=== PATIENT | male | born 1985 | race Hispanic/Latino ===

== ENCOUNTER 2023-06-01 00:15 | Emergency (ER) | payer SELFPAY ==
[2023-06-01 00:19] VITALS: BP 148/86
--- NOTE | 2023-06-01 00:31 | ED.GENMED ---
History of Present Illness
General
Chief Complaint: Alcohol Problem
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
Exam Limitations: other (Language barrier)
Time Seen by Provider: 06/01/23 00:18
Travel History
Have you had any contact with someone who has COVID-19?: No
Do you have any symptoms of coronavirus? Fever > 100 degrees, chills, cough, shortness of breath, sore throat, loss of taste or smell, muscle aches, or headache?: No
History of Present Illness
History of Present Illness:
This is a 38 year old male that comes in with c/o abd pain. States that he was drinking a lot today. States that after this he started to feel sick and he vomited 5 times. States that there was dark blood in his vomit. States that he doesn't know
how many beers that he drank. States that he has a cough and acid reflux. States that he also had chills, headache and some dizziness. Denies any fevr, chest pain, SOB, diarrhea, urinary burning.
Past History
Past History
ED Past Medical History: None; Negative Asthma, HTN, Hypercholesterolemia or NIDDM
ED Past Surgical History: None
Social History
Tobacco: Non-smoker
Alcohol: Occasional
Personal: Single
Living: alone
Review of Systems
Review of Systems
All Other Systems: ROS reviewed and negative except as documented in HPI and ROS
Constitutional: Reports chills; Denies fever
EENT: Reports no symptoms
Respiratory: Reports cough; Denies trouble breathing
Cardiac: Denies chest pain
ABD/GI: Reports abdominal pain, nausea and vomiting; Denies diarrhea
: Reports no symptoms; Denies dysuria, frequency or urgency
Musculoskeletal: Reports no symptoms
Skin: Reports no symptoms
Neurological: Reports dizzy and headache
Psychiatric: Reports no symptoms
Phy Exam
General Physical Exam
General Presentation: mild distress
General age: appears stated age
General Skin: warm and dry
General Habitus: normal
General Mental: alert
General Hydration: appears well hydrated
ENT Exam
ENT Exam: TM's normal, pharynx normal and neck supple
Eye Exam
Eye Exam: EOMI
Cardiovascular Exam
Cardiovascular Exam: regular rate/rhythm, no edema, no murmur and normal peripheral pulses
Pulmonary Exam
Pulmonary Exam: lungs clear, no respiratory distress, no rales, chest non tender, no crackles, no rhonchi, no wheezing and no cough
Gastrointestinal Exam
Gastrointestinal Exam: normal bowel sounds, soft, no organomegaly, no pulsatile mass, non distended and tender (Epigastric tenderness with palpation)
Musculoskeletal Exam
Musculoskeletal Exam: full ROM and no edema
Skin Exam
Skin Exam: normal color, warm/dry, no rash and no petechia
Psychiatric Exam
Psychiatric Exam: normal mood/affect
Scores
Withdrawal Assessment of Alcohol
Withdrawal Assessment Completed?: Not applicable
Course
Orders/Labs/Results
Orders:
Orders
06/01/23 00:31
0.9% Sodium Chloride 1000 ml [Nss] 1,000 ml IV BOLUS
Pantoprazole [Protonix IV] 80 mg IV NOW STA
06/01/23 00:38
Alcohol Urgent
Complete Blood Count/With Diff Urgent
Comprehensive Metabolic Panel Urgent
Lipase Urgent
06/01/23 00:42
Ondansetron Injectable [Zofran] 4 mg IV NOW STA
06/01/23 01:24
Ketorolac [Toradol] 30 mg IV NOW STA
Sucralfate Suspension [Carafate Suspension] 1 gm PO NOW STA
06/01/23 01:26
Diphenhydramine [Benadryl] 25 mg IV NOW STA
Prochlorperazine [Compazine] 5 mg IV NOW STA
Abnormal Lab Results
06/01/23
00:38
MCH 32.6 H pg
(27.0-31.0)
MCHC 37.4 H g/dL
(33.0-37.0)
Abs Immat Gran (auto) 0.1 H 10^3/uL
(0-0.05)
Absolute Monos (auto) 0.7 H 10^3/uL
(0.1-0.6)
Immature Gran % 0.8 H %
(0-0.5)
Sodium 131 L mmol/L
(135-145)
Chloride 90 L mmol/L
(98-107)
Creatinine 0.5 L mg/dL
(0.7-1.3)
Glucose 160 H mg/dl
(70-99)
Total Protein 8.8 H g/dl
(6.3-8.2)
06/01/23 00:38
06/01/23 00:38
Sodium slightly low. Chloride low. Glucose nonfasting. Total protein slightly elevated. Lipase normal at 67. Alcohol level 211
Vital Signs
Initial and Last Documented VS:
Initial Vital Signs
Pulse Resp BP Pulse Ox
104 24 148/86 97
06/01/23 00:19 06/01/23 00:19 06/01/23 00:19 06/01/23 00:19
Last Documented Vital Signs
Pulse Resp BP Pulse Ox
104 24 148/86 95
06/01/23 00:19 06/01/23 00:19 06/01/23 00:19 06/01/23 00:50
MDM/Problems Addressed
Differential Diagnosis Includes:
Gastritis, Pancreatitis,
MDM/Problems Addressed:
This is a 38 year old male that comes in with c/o abd pain and drinking to much alcohol. States that he was drinking today and then after this he was vomiting blood.
Will check labs, give Protonix
Back into see patient. Patient states that he continues with abd pain.
Into see patient. Patient is feeling better. Will give a dose of Carafate and patient will be given a prescription for Protonix for the next 10 days. Encouraged patient to stop drinking. Patient to increase his water intake to 8-8oz glasses daily.
Follow with the family doctor. Return with any concerns.
Chronic conditions affecting care:
NA
Acute Exacerbation and/or Progression of Chronic Illness:
NA
*Pulse Oximetry
Patient hypoxic: no
*EKG
Interpreted by ED Provider?: NA
Rate: EKG- N/A
*Customer Support Consultant Interpretation
Rate: Customer Support Consultant- N/A
*Critical Care Note
Total Time (30-74mins, 75-104mins- exclusive of procedures): Not Applicable
ED Attending Note
-
Portions of this chart may have been created with voice recognition software.� Occasional wrong word or��sound alike� substitutions may have occurred due to the inherent limitations of voice recognition software.
Discharge Plan
Departure
Patient Disposition: Home (Routine Discharge)
Date of Disposition: 06/01/23
Time of Disposition: 02:38
Patient with high blood pressure during this ER visit?: Yes
Condition: Good
Covid-19: Not Applicable
Discharge Problem:
Gastritis, Alcohol abuse
Instructions: Gastritis (DC), Alcohol Use Disorder (DC), BLOOD PRESSURE
Prescriptions:
New
pantoprazole [Protonix] 40 mg tablet,delayed release (DR/EC)
40 mg PO DAILY Qty: 10 0RF
Referrals:
NONE,* [Family Provider] -
Activity Restrictions/Additional Instructions:
As discussed, you need to stop drinking. This is most likely a gastritis from irritation of the alcohol. Please increase your water intake to 8-8oz glasses daily. You have been given a prescription for Protonix. Please take this daily for the next
10 days. Follow up with the family doctor for recheck. IF YOU HAVE ANY OATHER CONCERNS PLEASE RETURN TO THE EMERGENCY ROOM.
Interventions
Interventions:
IE-Wmpflp-Awglwfiavy Assessment Last Done: 06/01/23 00:50
ED- Cardiac Assessment Last Done: 06/01/23 00:50
ED- Neurological Assessment Last Done: 06/01/23 00:50
ED-Psychological Assessment Last Done: 06/01/23 00:50
ED- Pulmonary Assessment Last Done: 06/01/23 00:50
[2023-06-01] MEDS: NSS 1000 IV (00:40)
[2023-06-01] MEDS: PROTONIX IV 80 MG IV (00:40)
[2023-06-01] MEDS: ZOFRAN 4 MG IV (00:44)
[2023-06-01 01:00] VITALS: BP 152/88
[2023-06-01 01:01] LABS: ALT (SGPT) 40 U/L (0-50); AST (SGOT) 54 U/L (17-59); Albumin 4.9 g/dl (3.5-5.0); Alcohol 211 mg/dl; Alkaline Phosphatase 107 U/L (38-126); Blood Urea Nitrogen 9 mg/dl (9-20); Calcium 9.6 mg/dl (8.4-10.2); Carbon Dioxide 23 mmol/L (22-30); Chloride 90 mmol/L (98-107); Glucose 160 mg/dl (70-99); Lipase 67 U/L (23-300); Sodium 131 mmol/L (135-145); Total Bilirubin 0.9 mg/dl (0.2-1.3); Total Protein 8.8 g/dl (6.3-8.2); eGFR > 60.00
[2023-06-01 01:09] LABS: % Basophils 0.4 % (0-2); % Eosinophils 0.8 % (0-6); % Immature Granulocytes 0.8 % (0-0.5); % Lymphocytes 34.2 % (20.5-51.1); % Monocytes 9.1 % (1.7-9.3); % Neutrophils 54.7 % (42.2-75.2); Absolute Eosinophils 0.1 10^3/uL (0-0.7); Absolute Immature Granulocytes 0.1 10^3/uL (0-0.05); Absolute Lymphocytes 2.5 10^3/uL (1.2-3.4); Absolute Monocytes 0.7 10^3/uL (0.1-0.6); Hematocrit 42.8 % (39.0-52.0); Mean Corp Hgb Conc. 37.4 g/dL (33.0-37.0); Mean Corpuscular Hgb 32.6 pg (27.0-31.0); Mean Corpuscular Volume 87.2 fL (80.0-94.0); Mean Platelet Volume 8.9 fL (7.4-10.4); Nucleated Red Blood Cells % 0 % (-); Platelet Count 339 10^3/uL (130-400); Red Blood Cell Count 4.91 10^6/uL (4.70-6.10); Red Cell Dist. Width 12.1 % (11.5-14.5); White Blood Cell Count 7.4 10^3/uL (4.8-10.8)
[2023-06-01] MEDS: BENADRYL 25 MG IV (01:31)
[2023-06-01] MEDS: TORADOL 30 MG IV (01:31)
[2023-06-01] MEDS: COMPAZINE 5 MG IV (01:32)
[2023-06-01 02:00] VITALS: BP 116/89
[2023-06-01] MEDS: CARAFATE SUSPENSION 1 GM PO (02:35)
== END 2023-06-01 03:31 | disposition home or self-care (01) ==
LOC: EMR 00:15
PROVIDERS: Clinical Nurse Specialist Family Health; EMERGENCY PHYSICIAN Student in an Organized Health Care Education/Training Program
DX: K29.70 Gastritis, unspecified, without bleeding (principal); F10.10 Alcohol abuse, uncomplicated; K21.9 Gastro-esophageal reflux disease without esophagitis
CPT/HCPCS: 99283; 96374; 96375; 96361; 80053; 82077; 83690; 85025

== ENCOUNTER 2023-06-11 22:46 | Inpatient (IN) | payer OTHER, SELFPAY ==
[2023-06-11] VITALS (9 sets, daily range): BP systolic 119–156; BP diastolic 65–111; BMI 27.9
--- NOTE | 2023-06-11 19:22 | ED.GENMED ---
History of Present Illness
General
Chief Complaint: Alcohol Problem
Source: patient
Exam Limitations: none
Time Seen by Provider: 06/11/23 19:12
Travel History
Have you had any contact with someone who has COVID-19?: No
Do you have any symptoms of coronavirus? Fever > 100 degrees, chills, cough, shortness of breath, sore throat, loss of taste or smell, muscle aches, or headache?: No
History of Present Illness
History of Present Illness:
See MDM
Past History
Past History
ED Past Medical History: None; Negative Asthma, HTN, Hypercholesterolemia or NIDDM
ED Past Surgical History: None
Social History
Tobacco: Non-smoker
Alcohol: Occasional
Personal: Single
Living: alone
Phy Exam
Physical Exam
Physical Exam:
See MDM
Scores
Withdrawal Assessment of Alcohol
Withdrawal Assessment Completed?: Yes
Nausea and Vomiting: Constant nausea, frequent dry heaves and vomiting
Tactile Disturbances: Very mild itching, pins and needles, burning or numbness
Tremor: Moderate, with patient's arms extended
Auditory Disturbances: Not present
Paroxysmal Sweats: Beads of sweat obvious on forehead
Visual Disturbances: Very mild sensitivity
Anxiety: Moderately anxious, or guarded, so anxiety is inferred
Headache, Fullness in Head: Mild
Agitation: Moderately fidgety and restless
Orientation and clouding of sensorium: Oriented and can do serial additions
Total CIWA Score: 27
Alcohol Withdrawal Medication Recommendation: Equal to MSAS >11. Lorazepam 2-4mg IV NOW and re-assess q1hr
Course
Orders/Labs/Results
Orders:
Orders
06/11/23 Dinner
1800 calorie (15 carb) Diabetic
At Your Request: Limited, Scow Captain Required
Fluid Restriction: 1440 mL/day (48 oz)
Diabetic Diet: Cholesterol Lowering
06/11/23 19:19
0.9% Sodium Chloride 1000 ml [Nss] 1,000 ml IV BOLUS
Lorazepam [Ativan] 2 mg IV NOW STA
Ondansetron Injectable [Zofran] 4 mg IV NOW STA
Pantoprazole [Protonix IV] 40 mg IV NOW STA
06/11/23 19:27
Alcohol Urgent
B-Hydroxybutyrate Urgent
Comment: ADDED
Complete Blood Count/With Diff Urgent
Comprehensive Metabolic Panel Urgent
GGTP Urgent
Comment: ADDED
Lipase Urgent
Magnesium Urgent
PTT Urgent
Phosphorus Urgent
Comment: ADDED
Prothrombin Time Urgent
06/11/23 19:52
Lorazepam [Ativan] 2 mg IV NOW STA
06/11/23 19:53
CT Abd/pelvis W Iv Cont Urgent
Comment:
Reason For Exam: Upper mid abd pain, vomiting, alcohol abuse
06/11/23 21:31
Lorazepam [Ativan] 1 mg IV NOW STA
06/11/23 22:16
Admit/Transfer Patient As Directed
Co-Sign Provider:
Level of Care: Inpatient admission
Assign to:: IMU- Intermediate Care
Physician / Group: morgan lei
Diagnosis: alcohol withdrawal, beer potomania, hyperglycemia
Reason for Hospitalization: alcohol withdrawal, beer potomania, hyperglycemia
Expected length of stay greater than two midnights?: Yes
ELOS- Estimated Length of Stay in days: 5
I certify the patient meets the requirements for IP care: Yes
06/11/23 22:18
Code Status As Directed
Resuscitation Status: Full Code
06/11/23 23:44
0.9% Sodium Chloride [Nss (Preservative Free)] See Protocol IV PRN PRN
Dextrose 50%-Water [Dextrose 50% Syringe] 12.5 grams IV [id number] PRN
FOLic ACID [Folvite] 1 mg 0.9% Sodium Chloride 50 ml [Nss] 50 ml IV DAILYPRN
Glucagon [GlucaGen] 1 mg IM PRN PRN
Lorazepam [Ativan] 1 mg IV Q1HPRN PRN
Lorazepam [Ativan] 1 mg PO Q2HPRN PRN
Lorazepam [Ativan] 2 mg IV Q1HPRN PRN
Ondansetron Injectable [Zofran] 4 mg IV Q6HPRN PRN
06/11/23 23:44
Case Management Consult Once
Case Management Consult: Other
Comment: Substance abuse counseling
DIETARY CONSULT Routine
Reason for Consult: Nutrition support, possible refeeding guidelines
Urinalysis Routine
Date Specimen was Collected: 06/12/23
Time Specimen was Collected: 09:13
Urine Drug Abuse Screen Routine
Date Specimen was Collected: 06/12/23
Time Specimen was Collected: 09:14
Activity As Directed
Activity Level: As Tolerated
Bedside Glucose Monitoring As Directed
Frequency: AC&HS
Comment: Change to q6h if pt on TPN, tube feeding or not eating
Intake/ Output As Directed
Frequency: Per unit guidelines
MSAS SCORE As Directed
MSAS Score 0-4: Repeat MSAS every 2 hours until 0-4 for three consecutive assessments, then every 4 hours x 48
hours.
MSAS Score 5-7: For MILD withdrawl symptoms. Repeat MSAS and RASS every 2 hours
MSAS Score 8-11: For MODERATE withdrawal symptoms. Repeat MSAS and RASS every 1 hour. Consider ICU or IMU
level of care.
MSAS Score > 11: For SEVERE withdrawal symptoms. Repeat MSAS and RASS every 1 hour. Notify provider, consider
ICU level of care.
MSAS Additional Instructions: If no improvement or no decrease in score from severe to moderate within 12
hours, consult psychiatry
MSAS Notify Provider: Notify provider if patient requires more than 10 mg of Lorazepam in eight hour period.
Vital Signs As Directed
Frequency: Per unit guidelines
Weight As Directed
Frequency: Daily
Ot Eval And Treat Routine
Pt Eval And Treat Routine
Activity Level: As Tolerated
DX Deep Vein Thrombosis Video Routine
06/12/23 00:00
Thiamine Injection 200 mg IV Q8
06/12/23 04:35
Cardiovascular Evaluation IN AM
Complete Blood Count/With Diff IN AM
Comprehensive Metabolic Panel IN AM
Glycohemoglobin (HgbA1c) IN AM
06/12/23 07:30
Insulin Aspart Corrective Low [Novolog Flexpen-Low Resistance] See Protocol SC AC
06/12/23 08:00
FOLic ACID [Folvite] 1 mg PO DAILY
Phenobarbital Sodium [Phenobarbital] 97.5 mg IV TID
06/12/23 18:00
Enoxaparin Sodium [Lovenox] 40 mg SC QPM
06/13/23 03:56
Complete Blood Count/With Diff IN AM
Comprehensive Metabolic Panel IN AM
06/14/23 06:44
Complete Blood Count/With Diff IN AM
Comprehensive Metabolic Panel IN AM
06/14/23 08:00
Phenobarbital [Luminal] 64.8 mg PO TID
06/15/23 06:00
Complete Blood Count/With Diff IN AM
Comprehensive Metabolic Panel IN AM
06/15/23 08:00
Thiamine HCl [Vitamin B1] 100 mg PO BID
06/16/23 08:00
Phenobarbital [Luminal] 32.4 mg PO TID
Abnormal Lab Results
06/11/23
19:27
RBC 4.55 L 10^6/uL
(4.70-6.10)
Hct 38.6 L %
(39.0-52.0)
MCH 31.6 H pg
(27.0-31.0)
MCHC 37.3 H g/dL
(33.0-37.0)
Absolute Lymphs (auto) 1.0 L 10^3/uL
(1.2-3.4)
Absolute Monos (auto) 0.7 H 10^3/uL
(0.1-0.6)
Lymphocytes % 15.8 L %
(20.5-51.1)
Monocytes % 11.6 H %
(1.7-9.3)
Sodium 125 L mmol/L
(135-145)
Chloride 87 L mmol/L
(98-107)
Carbon Dioxide 20 L mmol/L
(22-30)
BUN 4 L mg/dl
(9-20)
Creatinine 0.5 L mg/dL
(0.7-1.3)
Glucose 180 H mg/dl
(70-99)
GGT 580 H U/L
(15-73)
AST 126 H U/L
(17-59)
ALT 121 H U/L
(0-50)
Alkaline Phosphatase 130 H U/L
(38-126)
Total Protein 9.7 H g/dl
(6.3-8.2)
Albumin 5.4 H g/dl
(3.5-5.0)
B-Hydroxybutyrate 2.02 H mmol/L
(0.02-0.27)
06/11/23 19:27
06/11/23 19:27
Vital Signs
Initial and Last Documented VS:
Initial Vital Signs
Temp Pulse Resp BP Pulse Ox
99.8 F 127 33 156/93 98
06/11/23 19:09 06/11/23 19:09 06/11/23 19:09 06/11/23 19:09 06/11/23 19:09
Last Documented Vital Signs
Temp Pulse Resp BP Pulse Ox
98.1 F 83 16 131/82 99
06/14/23 07:00 06/14/23 07:00 06/14/23 07:00 06/14/23 07:00 06/14/23 07:00
MDM/Problems Addressed
Differential Diagnosis Includes:
HPI and MDM Narrative:
38-year-old male presenting with abdominal pain, nausea and vomiting. Family at bedside indicating that he drinks approximately 12 beers a day. He recently stopped and has been vomiting all day.
On exam, patient is uncomfortable. He is actively vomiting. Patient is restless and agitated. Patient started on IV Ativan
Physical exam
General: Uncomfortable, dry heaving
HEENT: protecting airway
Neck: appears supple
CV: No evidence of cyanosis. Tachycardic
Resp: No accessory muscle use
Abd: Non-distended. Mid abdominal tenderness.
Extremities: No deformities
Neuro: alert.
Psych: Anxious and irritable
Skin: Intact, diaphoretic
Problems Addressed including Acute and Chronic Conditions affecting care:
1. Alcohol withdrawal
Acuity: acute
Prognosis: unstable
Details: Patient started on IV Ativan. Will continue to reassess. Will obtain basic blood work. Patient will likely be admitted in this state
2. Abd pain
Acuity: acute
Prognosis: unstable
Details: Likely alcohol gastritis. Will obtain CT abdomen/pelvis. Patient given Protonix
3. Hyponatremia
Acuity: acute
Prognosis: unstable
Details: Patient given IV fluids
Updates
After the initial 2 mg IV Ativan, Patient still significantly tremulous. He received a second dose of 2 mg IV Ativan. This seemed to help the most. CT was obtained to rule out any significant abdominal pathology given his pain. CT negative for
acute pathology. Patient has already been treated with Protonix. On reassessment, patient still mildly tremulous. Will give another dose of IV Ativan and admit
Differential Diagnosis (but not limited to): Alcohol withdrawal, gastritis, pancreatitis
Testing considered: CT abdomen/pelvis
Drug therapy (if applicable): OTC meds, please see d/c instruction regarding Rx drugs
Amount and/or Complexity of Data Reviewed
Clinical info obtained from: Patient
External data reviewed: N/A
Labs I independently reviewed (but not limited to): Hyponatremia, elevated LFTs
Radiology: N/A
Pulse Ox: not hypoxic
EKG independently reviewed: N/A
Corporate Job Titles: N/A
Critical Care: N/A
Risk of Complication:
Social Determinants of health: Good social support
Discussed with other providers: N/A
Escalation of Care includes Admit/Obs: After being observed in the Emergency Department, pt stable for discharge.
Occasional wrong word or 'sound a like' substitutions may have occurred due to the inherent limitations of voice recognition software. Read the chart carefully and recognize, using context, where substitutions have occurred.
*Critical Care Note
Total Time (30-74mins, 75-104mins- exclusive of procedures): 33 min
ED Attending Note
-
Portions of this chart may have been created with voice recognition software.� Occasional wrong word or��sound alike� substitutions may have occurred due to the inherent limitations of voice recognition software.
Discharge Plan
Departure
Patient Disposition: Admit
Date of Disposition: 06/11/23
Time of Disposition: 21:32
Admit to: IMU
Presentation/result/management discussed w/ accepting MD/DO: Hospitalist
Discharge Problem:
Alcohol withdrawal, Acute hyponatremia
Interventions
Interventions:
*General Assessment Last Done: 06/11/23 19:09
*Neglect/Abuse Screening Last Done: 06/11/23 19:09
ED- Fall Risk Assessment Last Done: 06/11/23 23:45
*ED COVID-19 Vaccine History Last Done: 06/11/23 19:09
*Nursing Disposition Last Done: 06/11/23 23:45
ED- Neurological Assessment Last Done: 06/11/23 20:12
ED-Psychological Assessment Last Done: 06/11/23 20:12
Discharge Date and Time
Discharge Date/Time: 06/11/23 23:46
[2023-06-11 19:35] LABS: % Basophils 0.3 % (0-2); % Eosinophils 0.2 % (0-6); % Immature Granulocytes 0.2 % (0-0.5); % Lymphocytes 15.8 % (20.5-51.1); % Monocytes 11.6 % (1.7-9.3); % Neutrophils 71.9 % (42.2-75.2); Absolute Monocytes 0.7 10^3/uL (0.1-0.6); Absolute Neutrophils 4.6 10^3/uL (1.4-6.5); Hematocrit 38.6 % (39.0-52.0); Hemoglobin 14.4 g/dL (13.0-18.0); Mean Corp Hgb Conc. 37.3 g/dL (33.0-37.0); Mean Corpuscular Hgb 31.6 pg (27.0-31.0); Mean Corpuscular Volume 84.8 fL (80.0-94.0); Nucleated Red Blood Cells % 0 % (-); Platelet Count 203 10^3/uL (130-400); Red Blood Cell Count 4.55 10^6/uL (4.70-6.10); Red Cell Dist. Width 11.9 % (11.5-14.5); White Blood Cell Count 6.4 10^3/uL (4.8-10.8)
[2023-06-11] MEDS: NSS 1000 IV (19:39)
[2023-06-11] MEDS: ATIVAN 2 MG IV ×2 (19:40→20:02)
[2023-06-11] MEDS: ZOFRAN 4 MG IV (19:43)
[2023-06-11 19:45] LABS: APTT 25.8 Sec (23.4-35.0); INR 0.96; PT 12.7 Sec (11.4-14.6)
[2023-06-11] MEDS: PROTONIX IV 40 MG IV (19:45)
[2023-06-11 19:49] LABS: ALT (SGPT) 121 U/L (0-50); AST (SGOT) 126 U/L (17-59); Albumin 5.4 g/dl (3.5-5.0); Alcohol 14 mg/dl; Alkaline Phosphatase 130 U/L (38-126); Blood Urea Nitrogen 4 mg/dl (9-20); Calcium 9.4 mg/dl (8.4-10.2); Carbon Dioxide 20 mmol/L (22-30); Chloride 87 mmol/L (98-107); Estimated Creatinine Clearance > 125 ml/min; Glucose 180 mg/dl (70-99); Lipase 253 U/L (23-300); Magnesium 1.7 mg/dl (1.6-2.3); Potassium 4.2 mmol/L (3.5-5.1); Sodium 125 mmol/L (135-145); Total Bilirubin 1.2 mg/dl (0.2-1.3); Total Protein 9.7 g/dl (6.3-8.2); eGFR > 60.00
--- NOTE | 2023-06-11 21:56 | HPS.HSE ---
Addendum entered and electronically signed by Tien Ferrer DO 06/11/23 23:50:
Patient seen and examined independently. Agree with findings and plan as set forth by GÓMEZ Parish.
Patient is a 38y M with no significant PMH who presents to ED for evaluation of nausea and tremor. Patient reports 12 beers daily x 5 years. His last drink was 10 PM last evening. He denies any prior rehab stays, etc.
Ass:
Alcohol Withdrawal
Alcohol Use Disorder
Hyponatremia / Beer Potomania
Plan:
Admit for further evaluation and treatment.
MSAS protocol with BZDs as needed.
IVF, thiamine, folate, etc.
Case Management evaluation / possible placement.
Original Note:
Family Physician
-
Family Physician: * NONE
Chief Complaint
-
Nausea, hand tremors, alcohol abuse
History of Present Illness
38-year-old male complaining of nausea with hand tremors today. He states he drinks 12 beers a day for the last 5 years his last drink was at 10 PM yesterday although current alcohol level is 14. He denies headache, blurred vision, dizziness,
chest pain, palpitations, shortness of breath, cough, abdominal pain, vomiting, diarrhea. The patient states he wants rehab for alcohol abuse. He has past medical history of alcohol abuse.
Medical History
Past Medical History
Past Medical History: Reports Other (Alcohol abuse)
Past Surgical History: Reports None
Social History
Tobacco: Non-smoker
Alcohol: Daily (12 beers)
Drug: None
Living: With Family
Employment: Employed (Works at a [employer])
Family History
Family History: Other (Father age 60 alcohol abuse, mother living in [place] unsure of medical problems)
Allergies / Home Medications
Allergies reflects when Allergies were last updated in [facility].
Home Medications with original date entered in [facility]
Allergy/Medication List:
Allergies
Allergy/AdvReac Type Severity Reaction Status Date / Time
No Known Allergies Allergy Verified 06/01/23 00:27
Home Medications
No Meds [No Current Medications] 06/11/23
Review of Systems
-
History Source: Patient
A 12 point ROS was completed and negative except as noted: Yes
Constitutional: Denies Fever or Chills
EENT: Denies Sore Throat or Runny Nose
Respiratory: Denies Cough or Trouble Breathing
Cardiac: Denies Chest Pain, Diaphoresis, Palpitations or Syncope
Abdomen/GI: Reports Nausea; Denies Abdominal Pain, Vomiting, Diarrhea, Constipated, Bloody Stools or Black Stools
: Denies Dysuria, Frequency, Flank Pain or Incontinence
Musculoskeletal: Denies Joint Pain or Edema
Skin: Denies Itching or Rash
Neurological: Reports Other (Tremors to hands); Denies Dizzy, Headache or Weakness
Endocrine: Reports No Symptoms
Hematologic/Lymphatic: Reports No Symptoms
Psych: Reports Calm
Physical Exam
Vital Signs
Vital Signs
Temp Pulse Resp BP Pulse Ox
99.1 F 108 19 125/65 97
06/11/23 20:09 06/11/23 20:30 06/11/23 20:30 06/11/23 20:30 06/11/23 20:09
Physical Exam
General: Conversant; No Pain, Fever or Chills
HEENT: NormoCephalic, Anicteric, PERRLA, [place] Conjunctivae, No Ptosis and Other (Dry oral mucosa)
Respiratory: Clear; No Wheezes, Rales or Rhonchi
Cardiac: S1/S2 and Tachycardia (Sinus tachycardia); No Murmur, Rub, Gallop or Peripheral Edema
Breast: Deferred by me
GI: Soft, Non Tender, Non Distended, Normal Bowel Sounds and No Hepatosplenomegaly
Rectal: Deferred by Provider
Genito-urinary: Deferred by me
Musculoskeletal: No Clubbing, No Cyanosis and No Edema
Skin: Warm and Dry; No Rash or Jaundice
Neuro: AO x 3, No Motor Deficits, Nonfocal/grossly intact, Cranial Nerves Intact, No Sensory Deficits and Tremors; No Slurred Speech or Facial Droop
Psych: Calm
Laboratory Results
-
06/11/23 19:
06/11/23:
Laboratory Results
PT 12.7 Sec (11.4-14.6) 06/11/23:
INR 0.96 06/11/23:
APTT 25.8 Sec (23.4-35.0) 06/11/23:
Total Bilirubin 1.2 mg/dl (0.2-1.3) 06/11/23:
AST 126 U/L (17-59) H 06/11/23:
ALT 121 U/L (0-50) H 06/11/23:
Alkaline Phosphatase 130 U/L (38-126) H 06/11/23:
Lipase 253 U/L (23-300) 06/11/23:
Data Reviewed
-
Lab Data: Labs Reviewed by me
Impression/Plan
-
Impression/plan:
Admit to IMU
#Acute alcohol withdrawal, alcohol abuse
Drinks 12 beers daily
EtOH 14
MSAs screen with protocol, IV thiamine, IV folate, IV phenobarb
IV Zofran as needed
Protonix 40 mg daily
PT/OT/case management consult
#Hyponatremia/beer potomania
NA 125
- fluid restrict, 1800 ada diet
- follow bmp
#Acute transaminitis likely secondary to alcohol abuse
-Follow CMP
#Acute hyperglycemia
BS 180, check HgbA1c ssi low
DVT prophylaxis
Subcu Lovenox
Full code
[2023-06-11] MEDS: ATIVAN 1 MG IV (22:22)
[2023-06-11] MEDS: PHENOBARBITAL 104 MG IV (23:18)
[2023-06-12] VITALS (14 sets, daily range): BP systolic 115–144; BP diastolic 71–99; PULSE 91; O2SAT 97; BMI 26.4
[2023-06-12 00:30] LABS: GGTP 580 U/L (15-73); Phosphorus 2.9 mg/dl (2.5-4.5)
[2023-06-12] MEDS: THIAMINE INJECTION 200 MG IV ×4 (00:32→23:16)
[2023-06-12 00:36] LABS: B-Hydroxybutyrate 2.02 mmol/L (0.02-0.27)
--- NOTE | 2023-06-12 04:48 | PTCARENOTE ---
Pt arrived to floor on stretcher from ED. Stand and pivot to bed. Unsteady balance and drowsy; Pt did receive Ativan in ED. Recently finished Phenobarbital IV bag; Denies pain, Sinus Tach on monitor. Mild hand tremors and diaphoresis. [place]
speaking but understands some [place]. Oriented to room, call vences within reach. Will continue to monitor and assess.
[2023-06-12 04:51] LABS: % Basophils 0.3 % (0-2); % Eosinophils 0.5 % (0-6); % Immature Granulocytes 0.2 % (0-0.5); % Lymphocytes 29.7 % (20.5-51.1); % Monocytes 13.2 % (1.7-9.3); % Neutrophils 56.1 % (42.2-75.2); Absolute Lymphocytes 1.9 10^3/uL (1.2-3.4); Absolute Monocytes 0.8 10^3/uL (0.1-0.6); Absolute Neutrophils 3.5 10^3/uL (1.4-6.5); Hematocrit 36.6 % (39.0-52.0); Hemoglobin 13.3 g/dL (13.0-18.0); Mean Corp Hgb Conc. 36.3 g/dL (33.0-37.0); Mean Corpuscular Hgb 31.9 pg (27.0-31.0); Mean Corpuscular Volume 87.8 fL (80.0-94.0); Mean Platelet Volume 9.5 fL (7.4-10.4); Nucleated Red Blood Cells % 0 % (-); Platelet Count 163 10^3/uL (130-400); Red Blood Cell Count 4.17 10^6/uL (4.70-6.10); Red Cell Dist. Width 11.7 % (11.5-14.5); White Blood Cell Count 6.2 10^3/uL (4.8-10.8)
[2023-06-12 05:19] LABS: ALT (SGPT) 100 U/L (0-50); AST (SGOT) 75 U/L (17-59); Albumin 4.8 g/dl (3.5-5.0); Alkaline Phosphatase 91 U/L (38-126); Blood Urea Nitrogen 7 mg/dl (9-20); Calcium 9.5 mg/dl (8.4-10.2); Carbon Dioxide 24 mmol/L (22-30); Chloride 95 mmol/L (98-107); Estimated Creatinine Clearance > 125 ml/min; Glucose 149 mg/dl (70-99); HDL Cholesterol 103 mg/dl; Potassium 3.8 mmol/L (3.5-5.1); Sodium 136 mmol/L (135-145); Total Bilirubin 1.4 mg/dl (0.2-1.3); Total Protein 8.2 g/dl (6.3-8.2); Triglyceride 71 mg/dl (10-149); Very Low Density Lipoprotein 14 mg/dl (0-30); eGFR > 60.00
[2023-06-12 05:27] LABS: LDL Cholesterol, Calculated 221 mg/dl; Total Cholesterol 338 mg/dl (50-199)
--- NOTE | 2023-06-12 07:16 | W.PN.HOSP.TC ---
Today's Communication/Plan
-
cont MSAS protocol
phenobarbital taper
low cholesterol carb controlled diet
fluid restriction, monitor Na
Diabetes education
Stable for downgrade to Tele
Assessment / Plan
Assessment / Plan
Physical Exam
General: No acute distress appears comfortable
HEENT: NormoCephalic, Anicteric, PERRLA, [place] Conjunctivae, No Ptosis
Respiratory: Clear; No Wheezes, Rales or Rhonchi
Cardiac: S1/S2 Sinus tachy
GI: Soft, Non Tender, Non Distended, Normal Bowel Sounds and No Hepatosplenomegaly
Musculoskeletal: No Clubbing, No Cyanosis and No Edema
Skin: Warm and Dry; No Rash or Jaundice
Neuro: AO x 3, tremors noted outstretched hands
Psych: Calm
38M Jordanian speaking hx ETOH abuse here for ETOH withdrawal.
#Acute alcohol withdrawal, alcohol abuse
Drinks 12 beers daily
EtOH 14 on admission
MSAs screen with protocol, IV thiamine, IV folate, IV phenobarb taper
IV Zofran as needed
Protonix 40 mg daily
PT/OT appreicated no needs
#Hyponatremia/beer potomania
NA 125
- fluid restrict, 1800 ada diet
- follow bmp
-Hyponatremia resolved
#Acute transaminitis likely secondary to alcohol abuse
-Follow CMP
#Acute hyperglycemia
#A1c appreciated 10.1
New diagnosis DM
Diabetes Education Consult requested
low dose sliding scale
#Hyperlipidemia
#Mild transaminitis, monitor
low cholesterol diet
DVT prophylaxis Subcu Lovenox
Medically stable for downgrade to Tele
Anticipated Discharge: 24 - 48 hours
Subjective/Interval History
-
Date of Service: June 12, 2023
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 No acute distress sitting up comfortably in chair. Reports intermittent nausea vomiting headache tremors.
Objective Data
-
Labs:
Laboratory Results
06/11/23 06/11/23 06/12/23
19:27 23:44 04:35
WBC 6.4 6.2
Hgb 14.4 13.3
Hct 38.6 L 36.6 L
Plt Count 203 163
PT 12.7 Cancelled
INR 0.96 Cancelled
APTT 25.8 Cancelled
Sodium 125 L 136 D
Potassium 4.2 3.8
Chloride 87 L 95 L
Carbon Dioxide 20 L 24
BUN 4 L 7 L
Creatinine 0.5 L 0.5 L
Glucose 180 H 149 H
Calcium 9.4 9.5
Total Bilirubin 1.2 1.4 H
AST 126 H 75 H
ALT 121 H 100 H
Alkaline Phosphatase 130 H 91
Vital Signs:
Vital Signs
Temp Pulse Resp BP Pulse Ox
98.1 F 102 28 125/80 96
06/12/23 03:18 06/12/23 05:00 06/12/23 05:00 06/12/23 04:00 06/12/23 05:00
--- NOTE | 2023-06-12 07:54 | PTCARENOTE ---
Pt cousin nadyadarren here with info for case management re [facility]
[2023-06-12 08:32] LABS: Glucose - Point of Care 143 mg/dl (70-99)
[2023-06-12] MEDS: NOVOLOG FLEXPEN-LOW RESISTANCE SC (08:38)
[2023-06-12] MEDS: PHENOBARBITAL 97.5 MG IV ×3 (08:38→21:19)
[2023-06-12] MEDS: FOLVITE 1 MG PO (08:39)
[2023-06-12 08:45] LABS: Glycohemoglobin (HgbA1c) 10.1 % (4.0-5.6)
[2023-06-12] MEDS: ZOFRAN 4 MG IV ×2 (09:28→17:14)
[2023-06-12 09:29] LABS: Urine Albumin 1+ (Neg - Trace); Urine Bilirubin 1+ (Negative); Urine Character Clear (Clear); Urine Color Yellow; Urine Glucose 3+ (Negative); Urine Ketone 3+ (Negative); Urine Leukocyte Negative (Negative); Urine Nitrite Negative (Negative); Urine Occult Blood Negative (Negative); Urine Urobilinogen 1+ (Neg - 1+)
[2023-06-12 10:02] LABS: Barbiturates Positive (Negative); Benzodiazepines Positive (Negative)
--- NOTE | 2023-06-12 10:02 | PTCARENOTE ---
Pt attempted to drink coffee and toast and vomited , Zofran given as ordered
[2023-06-12 10:03] LABS: Amphetamines Negative (Negative); Buprenorphine Negative (Negative); Cocaine Negative (Negative); Marijuana Negative (Negative); Methadone Negative (Negative); Methamphetamines Negative (Negative); Opiates Negative (Negative); Phencyclidine Negative (Negative); Tricyclic Antidepressants Negative (Negative); Urine Mucus Many; Urine Squamous Cell 0-2 /LPF (Few)
[2023-06-12 10:15] LABS: Urine Amorphous Seen; Urine Red Blood Cell 0-2 /HPF (0-2); Urine White Cell 0-2 /HPF (0-5)
[2023-06-12 10:21] LABS: Fentanyl, Urine Negative (Negative)
--- NOTE | 2023-06-12 12:27 | PTCARENOTE ---
Diabetes Education- [facility] for new diagnosis T2DM, A1C 10.1%. Language barrier. Brought brochure on monitoring a well as booklet on diabetes, both in Chinese to make reference to when educating. Provided with and instructions given on Contour
Next EZ glucometer, fair return demonstration with result of 218 mg/dl pre lunch. Suggest getting Reli-on meter from [facility] for cost savings. this written for his reference. He does not drive but has relative who do. Box of lancets left at bedside.
I will follow up on Thursday to reinforce, asked him to read the information given and let me know if he has questions. Phone number provided for follow up questions. Updates to WARREN Aguero.
--- NOTE | 2023-06-12 12:43 | CM ---
Addendum entered by Brittany Moeller 06/12/23 13:04:
When stable for discharge, Sherrill reported that she found a facility for patient that supports Greenlandic speaking patients.
Original Note:
Initial Assessment completed via phone with emergency contact/cousin, Rayna #[phone]
Patient's ID and verified
Pharmacy verified: [facility], [place], [place]
Patient's cousin reports that patient is croatian speaking; lives in a 2nd floor apartment with his 1 year old daughter; 16 steps to enter; bathroom has tub with shower
PLOF: cousin reports that patient is independent with ADLs and ambulation
DME: none reported
SNF/Rehab utilization history: None
Case Management Consult completed. Counseling with [facility] offered and accepted. Referral submitted to Sherrill from [facility] via phone
[2023-06-12 12:55] LABS: Glucose - Point of Care 161 mg/dl (70-99)
[2023-06-12] MEDS: NOVOLOG FLEXPEN-LOW RESISTANCE 1 UNITS SC ×2 (14:11→17:11)
[2023-06-12 17:00] LABS: Glucose - Point of Care 160 mg/dl (70-99)
[2023-06-12] MEDS: LOVENOX 40 MG SC (17:14)
--- NOTE | 2023-06-12 17:34 | PTCARENOTE ---
Pt attempted to eat soup and vomited . Zofran given as ordered
--- NOTE | 2023-06-12 20:07 | PTCARENOTE ---
Received pt from kell RN. Pt is AAOx3, Turkmen speaking, MSAS Q4. NSR on the monitor. On RA O2 sat 97%, lungs clear. No c/o nausea or vomiting. Mouth care provided. Pt is laying comfortable in bed with call vences in reach.
[2023-06-12 22:42] LABS: Glucose - Point of Care 152 mg/dl (70-99)
[2023-06-13] VITALS (9 sets, daily range): BP systolic 96–142; BP diastolic 71–90; BMI 26.1
[2023-06-13 04:08] LABS: % Basophils 0.2 % (0-2); % Eosinophils 1.4 % (0-6); % Immature Granulocytes 0.2 % (0-0.5); % Lymphocytes 39.4 % (20.5-51.1); % Monocytes 16.2 % (1.7-9.3); % Neutrophils 42.6 % (42.2-75.2); Absolute Eosinophils 0.1 10^3/uL (0-0.7); Absolute Lymphocytes 1.8 10^3/uL (1.2-3.4); Absolute Monocytes 0.7 10^3/uL (0.1-0.6); Absolute Neutrophils 1.9 10^3/uL (1.4-6.5); Hematocrit 37.4 % (39.0-52.0); Hemoglobin 13.7 g/dL (13.0-18.0); Mean Corp Hgb Conc. 36.6 g/dL (33.0-37.0); Mean Corpuscular Hgb 32.2 pg (27.0-31.0); Mean Corpuscular Volume 87.8 fL (80.0-94.0); Mean Platelet Volume 9.4 fL (7.4-10.4); Nucleated Red Blood Cells % 0 % (-); Platelet Count 159 10^3/uL (130-400); Red Blood Cell Count 4.26 10^6/uL (4.70-6.10); Red Cell Dist. Width 11.7 % (11.5-14.5); White Blood Cell Count 4.4 10^3/uL (4.8-10.8)
[2023-06-13 04:33] LABS: ALT (SGPT) 96 U/L (0-50); AST (SGOT) 82 U/L (17-59); Albumin 4.5 g/dl (3.5-5.0); Alkaline Phosphatase 92 U/L (38-126); Blood Urea Nitrogen 8 mg/dl (9-20); Calcium 9.2 mg/dl (8.4-10.2); Carbon Dioxide 20 mmol/L (22-30); Chloride 95 mmol/L (98-107); Estimated Creatinine Clearance > 125 ml/min; Glucose 149 mg/dl (70-99); Potassium 3.6 mmol/L (3.5-5.1); Sodium 134 mmol/L (135-145); Total Bilirubin 1.1 mg/dl (0.2-1.3); Total Protein 7.7 g/dl (6.3-8.2); eGFR > 60.00
--- NOTE | 2023-06-13 08:01 | W.PN.HOSP.TC ---
Today's Communication/Plan
-
discontinue phenobarbital taper
cont MSAS protocol
stable for downgrade to Tele
Assessment / Plan
Assessment / Plan
Physical Exam
General: No acute distress appears comfortable
HEENT: NormoCephalic, Anicteric, PERRLA, [place] Conjunctivae, No Ptosis
Respiratory: Clear; No Wheezes, Rales or Rhonchi
Cardiac: S1/S2 Sinus tachy
GI: Soft, Non Tender, Non Distended, Normal Bowel Sounds and No Hepatosplenomegaly
Musculoskeletal: No Clubbing, No Cyanosis and No Edema
Skin: Warm and Dry; No Rash or Jaundice
Neuro: AO x 3, tremors outstretched hands significantly improved/appears resolved at this time
Psych: Calm
38M Ethiopian speaking hx ETOH abuse here for ETOH withdrawal.
#Acute alcohol withdrawal, alcohol abuse
Drinks 12 beers daily
EtOH 14 on admission
MSAs screen with protocol, thiamine, folate, withdrawal symptoms improved, discontinue phenobarbital taper and monitor off
IV Zofran as needed
Protonix 40 mg daily
PT/OT appreicated no needs
#Hyponatremia/beer potomania
NA 125
- fluid restrict, 1800 ada diet
- follow bmp
-Hyponatremia since improved Na 130s
#Acute transaminitis likely secondary to alcohol abuse
-Follow CMP
#Acute hyperglycemia
#A1c appreciated 10.1
New diagnosis DM
Diabetes Education Consult requested
low dose sliding scale
#Hyperlipidemia
#Mild transaminitis, monitor
low cholesterol diet
DVT prophylaxis Subcu Lovenox
Medically stable for downgrade to Tele
Anticipated Discharge: 24 - 48 hours
Subjective/Interval History
-
Date of Service: June 13, 2023
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 No significant withdrawal symptoms at this time.
Objective Data
-
Labs:
Laboratory Results
06/13/23
03:56
WBC 4.4 L
Hgb 13.7
Hct 37.4 L
Plt Count 159
Sodium 134 L
Potassium 3.6
Chloride 95 L
Carbon Dioxide 20 L
BUN 8 L
Creatinine 0.4 L
Glucose 149 H
Calcium 9.2
Total Bilirubin 1.1
AST 82 H
ALT 96 H
Alkaline Phosphatase 92
Vital Signs:
Vital Signs
Temp Pulse Resp BP Pulse Ox
98.4 F 86 12 142/87 97
06/13/23 03:53 06/13/23 06:00 06/13/23 06:00 06/13/23 06:00 06/13/23 06:00
I&O
06/12/23 06/13/23 06/14/23
06:59 06:59 07:59
Intake Total 820 / 820
Output Total 500 / 500
Balance 320 / 320
[2023-06-13 08:27] LABS: Glucose - Point of Care 123 mg/dl (70-99)
[2023-06-13] MEDS: THIAMINE INJECTION 200 MG IV ×3 (08:45→23:13)
[2023-06-13] MEDS: PHENOBARBITAL 97.5 MG IV (08:45)
[2023-06-13] MEDS: FOLVITE 1 MG PO (08:52)
[2023-06-13] MEDS: NOVOLOG FLEXPEN-LOW RESISTANCE SC ×3 (08:52→17:25)
[2023-06-13 13:23] LABS: Glucose - Point of Care 126 mg/dl (70-99)
--- NOTE | 2023-06-13 15:27 | CM ---
CM following re: d/c planning
Chart reviewed
Pt to be transferred from current unit to another
CM wrote down the phone number of the assigned [facility] art history instructor & left a message regarding mutual patient
Pt admitted secondary to ETOH abuse; previous CM placed referral to [facility] and patient amenable to tx options
Pt is Burundian speaking only, however does have a cousin named Rayna Lynne who can be reached at [phone]
No definitive d/c date noted
Awaiting a return call from [facility] comp field case manager Donna Retana [phone] (c) or [phone] (o)
CM will continue to monitor patient progress and assist with needs at d/c as indicated
PLAN; CM following for needs
--- NOTE | 2023-06-13 16:25 | PTCARENOTE ---
Pt for transfer to tele. Report to receiving RN. Transferred via wheelchair with personal belongings.
[2023-06-13] MEDS: LOVENOX 40 MG SC (17:25)
[2023-06-13 17:27] LABS: Glucose - Point of Care 144 mg/dl (70-99)
[2023-06-13 21:57] LABS: Glucose - Point of Care 131 mg/dl (70-99)
[2023-06-14 03:38] VITALS: BP 119/75
[2023-06-14 06:32] VITALS: BMI 26.2
[2023-06-14 07:00] VITALS: BP 131/82
[2023-06-14 07:22] LABS: % Basophils 0.3 % (0-2); % Eosinophils 2.7 % (0-6); % Immature Granulocytes 0.2 % (0-0.5); % Lymphocytes 37.5 % (20.5-51.1); % Monocytes 15.2 % (1.7-9.3); % Neutrophils 44.1 % (42.2-75.2); Absolute Eosinophils 0.2 10^3/uL (0-0.7); Absolute Lymphocytes 2.3 10^3/uL (1.2-3.4); Absolute Monocytes 0.9 10^3/uL (0.1-0.6); Absolute Neutrophils 2.7 10^3/uL (1.4-6.5); Hematocrit 38.6 % (39.0-52.0); Hemoglobin 14.1 g/dL (13.0-18.0); Mean Corp Hgb Conc. 36.5 g/dL (33.0-37.0); Mean Corpuscular Hgb 31.4 pg (27.0-31.0); Mean Platelet Volume 9.4 fL (7.4-10.4); Nucleated Red Blood Cells % 0 % (-); Platelet Count 191 10^3/uL (130-400); Red Blood Cell Count 4.49 10^6/uL (4.70-6.10); Red Cell Dist. Width 11.6 % (11.5-14.5)
--- NOTE | 2023-06-14 07:33 | W.PN.HOSP.TC ---
Today's Communication/Plan
-
ok to shower
dc monitoring coordinator
cont metformin
medically stable for discharge ETOH inpt rehab pending placement
Assessment / Plan
Assessment / Plan
Physical Exam
General: No acute distress appears comfortable
HEENT: NormoCephalic, Anicteric, PERRLA, [place] Conjunctivae, No Ptosis
Respiratory: Clear; No Wheezes, Rales or Rhonchi
Cardiac: S1/S2 Sinus tachy
GI: Soft, Non Tender, Non Distended, Normal Bowel Sounds and No Hepatosplenomegaly
Musculoskeletal: No Clubbing, No Cyanosis and No Edema
Skin: Warm and Dry; No Rash or Jaundice
Neuro: AO x 3, tremors outstretched hands significantly improved/appears resolved at this time
Psych: Calm
38M Bulgarian speaking hx ETOH abuse here for ETOH withdrawal.
#Acute alcohol withdrawal, alcohol abuse
Drinks 12 beers daily
EtOH 14 on admission
MSAs screen with protocol, thiamine, folate, withdrawal symptoms improved, phenobarbital taper discontinued
IV Zofran as needed
Protonix 40 mg daily
PT/OT appreciated no needs
#Hyponatremia/beer potomania
NA 125
- fluid restrict, 1800 ada diet
- follow bmp
-Hyponatremia since improved Na 130s
#Acute transaminitis likely secondary to alcohol abuse
-Follow CMP
#Acute hyperglycemia
#A1c appreciated 10.1
New diagnosis DM
Diabetes Education Consult requested
low dose sliding scale
metformin started
sugars so far well controlled without need for much insulin correction, question if 10.1 A1c is authentic, outpt repeat recommended
#Hyperlipidemia
#Mild transaminitis, monitor
low cholesterol diet
DVT prophylaxis Subcu Lovenox
Medically stable for discharge inpt ETOH rehab pending placement
I spent a total of 45 minutes with the patient or on the floor. More than 50% of this time involved counseling and coordination of care.
Anticipated Discharge: Within 24 hours
Subjective/Interval History
-
Date of Service: June 14, 2023
No acute distress, comfortable, no significant withdrawal symptoms.
Objective Data
-
Labs:
Laboratory Results
06/14/23
06:44
WBC Pending
Hgb Pending
Hct Pending
Plt Count Pending
Sodium Pending
Potassium Pending
Chloride Pending
Carbon Dioxide Pending
BUN Pending
Creatinine Pending
Glucose Pending
Calcium Pending
Total Bilirubin Pending
AST Pending
ALT Pending
Alkaline Phosphatase Pending
Vital Signs:
Vital Signs
Temp Pulse Resp BP Pulse Ox
98.4 F 92 18 119/75 99
06/14/23 03:38 06/14/23 03:38 06/14/23 03:38 06/14/23 03:38 06/14/23 03:38
I&O
06/13/23 06/14/23 06/15/23
05:59 06:59 06:59
Intake Total
Output Total
Balance
[2023-06-14 07:37] LABS: Glucose - Point of Care 128 mg/dl (70-99)
[2023-06-14 07:54] LABS: ALT (SGPT) 113 U/L (0-50); AST (SGOT) 98 U/L (17-59); Albumin 4.6 g/dl (3.5-5.0); Alkaline Phosphatase 94 U/L (38-126); Blood Urea Nitrogen 10 mg/dl (9-20); Calcium 9.5 mg/dl (8.4-10.2); Carbon Dioxide 23 mmol/L (22-30); Chloride 95 mmol/L (98-107); Estimated Creatinine Clearance > 125 ml/min; Glucose 144 mg/dl (70-99); Magnesium 1.9 mg/dl (1.6-2.3); Phosphorus 3.6 mg/dl (2.5-4.5); Potassium 3.6 mmol/L (3.5-5.1); Sodium 135 mmol/L (135-145); Total Bilirubin 0.8 mg/dl (0.2-1.3); eGFR > 60.00
[2023-06-14] MEDS: THIAMINE INJECTION 200 MG IV ×2 (08:31→16:24)
[2023-06-14] MEDS: FOLVITE 1 MG PO (08:31)
[2023-06-14] MEDS: NOVOLOG FLEXPEN-LOW RESISTANCE SC ×3 (08:31→17:26)
[2023-06-14 11:00] VITALS: BP 142/95
[2023-06-14 12:13] LABS: Glucose - Point of Care 133 mg/dl (70-99)
[2023-06-14 15:00] VITALS: BP 126/78
[2023-06-14 17:23] LABS: Glucose - Point of Care 37 mg/dl (70-99)
[2023-06-14] MEDS: GLUCOPHAGE PO (17:27)
[2023-06-14 17:52] LABS: Glucose - Point of Care 214 mg/dl (70-99)
[2023-06-14] MEDS: LOVENOX 40 MG SC (17:56)
[2023-06-14] MEDS: GLUCOPHAGE 500 MG PO (17:56)
[2023-06-14 19:39] VITALS: BP 124/76
[2023-06-14 20:22] LABS: Glucose - Point of Care 165 mg/dl (70-99)
[2023-06-14 22:27] LABS: Glucose - Point of Care 137 mg/dl (70-99)
[2023-06-14 23:19] VITALS: BP 133/81
[2023-06-15 03:26] VITALS: BP 117/84
[2023-06-15 04:08] LABS: Glucose - Point of Care 141 mg/dl (70-99)
[2023-06-15 06:00] VITALS: BMI 26.1
[2023-06-15 07:14] LABS: ALT (SGPT) 129 U/L (0-50); AST (SGOT) 94 U/L (17-59); Albumin 4.4 g/dl (3.5-5.0); Alkaline Phosphatase 85 U/L (38-126); Blood Urea Nitrogen 7 mg/dl (9-20); Calcium 9.3 mg/dl (8.4-10.2); Carbon Dioxide 26 mmol/L (22-30); Chloride 97 mmol/L (98-107); Estimated Creatinine Clearance > 125 ml/min; Glucose 131 mg/dl (70-99); Potassium 3.6 mmol/L (3.5-5.1); Sodium 133 mmol/L (135-145); Total Bilirubin 0.7 mg/dl (0.2-1.3); Total Protein 7.8 g/dl (6.3-8.2); eGFR > 60.00
[2023-06-15 08:06] VITALS: BP 124/86
[2023-06-15] MEDS: NOVOLOG FLEXPEN-LOW RESISTANCE SC ×2 (08:07→16:42)
[2023-06-15 08:08] LABS: Glucose - Point of Care 114 mg/dl (70-99)
[2023-06-15] MEDS: FOLVITE 1 MG PO (08:08)
[2023-06-15] MEDS: GLUCOPHAGE 500 MG PO ×2 (08:08→17:37)
[2023-06-15] MEDS: VITAMIN B1 100 MG PO ×2 (08:08→19:57)
--- NOTE | 2023-06-15 09:15 | W.PN.HOSP.TC ---
Today's Communication/Plan
-
Stable for discharge to inpatient alcohol rehab when bed available
Assessment / Plan
Assessment / Plan
38M Swedish speaking hx ETOH abuse here for ETOH withdrawal.
#Acute alcohol withdrawal, alcohol abuse
Drinks 12 beers daily
EtOH 14 on admission
MSAs screen with protocol, thiamine, folate, withdrawal symptoms improved, phenobarbital taper discontinued
IV Zofran as needed
Protonix 40 mg daily
PT/OT appreciated no needs
Medically stable for discharge to acute inpatient alcohol rehab when bed available
#Hyponatremia/beer potomania
NA 125
-Improved to 133, continue fluid restriction, trend sodium
#Acute transaminitis likely secondary to alcohol abuse
-Follow CMP
#Acute hyperglycemia
#A1c appreciated 10.1
New diagnosis DM
Diabetes Education Consult requested
low dose sliding scale
metformin started
sugars so far well controlled without need for much insulin correction, question if 10.1 A1c is authentic, outpt repeat recommended
Patient hypoglycemic on 06/13, resolved with orange juice
#Hyperlipidemia
#Mild transaminitis, monitor
low cholesterol diet
DVT prophylaxis Subcu Lovenox
Medically stable for discharge inpt ETOH rehab pending placement
Physical Exam
General: No acute distress appears comfortable
HEENT: NormoCephalic, Anicteric, PERRLA, [place] Conjunctivae, No Ptosis
Respiratory: Clear; No Wheezes, Rales or Rhonchi
Cardiac: S1/S2 Sinus tachy
GI: Soft, Non Tender, Non Distended, Normal Bowel Sounds and No Hepatosplenomegaly
Musculoskeletal: No Clubbing, No Cyanosis and No Edema
Skin: Warm and Dry; No Rash or Jaundice
Neuro: AO x 3, tremors outstretched hands significantly improved/appears resolved at this time
Psych: Calm
Anticipated Discharge: Within 24 hours
Subjective/Interval History
-
Date of Service: June 15, 2023
Patient reports having hypoglycemia yesterday which resolved with orange juice. No nausea, no vomiting. No headache. No tremors.
Objective Data
-
Labs:
Laboratory Results
06/15/23
06:26
Sodium 133 L
Potassium 3.6
Chloride 97 L
Carbon Dioxide 26
BUN 7 L
Creatinine 0.5 L
Glucose 131 H
Calcium 9.3
Total Bilirubin 0.7
AST 94 H
ALT 129 H
Alkaline Phosphatase 85
Vital Signs:
Vital Signs
Temp Pulse Resp BP Pulse Ox
98.6 F 90 18 124/86 97
06/15/23 08:06 06/15/23 08:06 06/15/23 08:06 06/15/23 08:06 06/15/23 08:06
I&O
06/14/23 06/15/23 06/16/23
06:59 06:59 06:59
Intake Total 1660 / 1660
Balance 1660 / 1660
[2023-06-15 10:06] VITALS: BP 151/84; PULSE 89; O2SAT 99
--- NOTE | 2023-06-15 10:11 | PTOTSP ---
Pt is ambulating independently without an assistive device with steady gait and is able to climb steps without difficulty. No further PT needs at this time. PT will sign off.
[2023-06-15 11:31] VITALS: BP 169/94
[2023-06-15 11:57] LABS: Glucose - Point of Care 201 mg/dl (70-99)
--- NOTE | 2023-06-15 12:47 | CM ---
Reviewed chart, spoke with Sherrill from [facility] who stated that she has found a facility for patient that is Bahraini Speaking. She stated that she needs updated clinical to be faxed [phone]. Will fax clinical.
Plan: Case management will continue to follow and assist with discharge planning. Will fax clinical to Sherrill.
[2023-06-15] MEDS: NOVOLOG FLEXPEN-LOW RESISTANCE 2 UNITS SC (13:22)
[2023-06-15 15:02] VITALS: BP 142/86
[2023-06-15 16:41] LABS: Glucose - Point of Care 138 mg/dl (70-99)
[2023-06-15] MEDS: LOVENOX 40 MG SC (17:37)
[2023-06-15 22:56] LABS: Glucose - Point of Care 174 mg/dl (70-99)
[2023-06-15 23:27] VITALS: BP 123/82
[2023-06-16 07:15] LABS: ALT (SGPT) 123 U/L (0-50); AST (SGOT) 70 U/L (17-59); Albumin 4.3 g/dl (3.5-5.0); Alkaline Phosphatase 81 U/L (38-126); Blood Urea Nitrogen 9 mg/dl (9-20); Carbon Dioxide 30 mmol/L (22-30); Chloride 97 mmol/L (98-107); Estimated Creatinine Clearance > 125 ml/min; Glucose 153 mg/dl (70-99); Magnesium 1.9 mg/dl (1.6-2.3); Phosphorus 3.9 mg/dl (2.5-4.5); Potassium 3.9 mmol/L (3.5-5.1); Sodium 138 mmol/L (135-145); Total Bilirubin 0.5 mg/dl (0.2-1.3); Total Protein 7.6 g/dl (6.3-8.2); eGFR > 60.00
[2023-06-16] MEDS: GLUCOPHAGE 500 MG PO (07:43)
[2023-06-16] MEDS: FOLVITE 1 MG PO (07:44)
[2023-06-16] MEDS: VITAMIN B1 100 MG PO (07:44)
--- NOTE | 2023-06-16 07:56 | W.PN.HOSP.TC ---
Today's Communication/Plan
-
Discharge to acute inpatient alcohol rehab today
Assessment / Plan
Assessment / Plan
38M Norwegian speaking hx ETOH abuse here for ETOH withdrawal.
#Acute alcohol withdrawal, alcohol abuse with dependency
Drinks 12 beers daily
EtOH 14 on admission
MSAs screen with protocol, thiamine, folate, withdrawal symptoms improved, phenobarbital taper discontinued
IV Zofran as needed
Protonix 40 mg daily
PT/OT appreciated no needs
Medically stable for discharge to acute inpatient alcohol rehab when bed available
#Hyponatremia/beer potomania
NA 125
-Improved to 138, continue fluid restriction, trend sodium
#Acute transaminitis likely secondary to alcohol abuse
-Follow CMP
#Acute hyperglycemia
#A1c appreciated 9.8
New diagnosis DM
Diabetes Education Consult requested
low dose sliding scale
metformin started
Patient hypoglycemic on 06/13, resolved with orange juice
#Hyperlipidemia
#Mild transaminitis, monitor
low cholesterol diet
DVT prophylaxis Subcu Lovenox
Medically stable for discharge to inpt ETOH rehab today
Physical Exam
General: No acute distress appears comfortable
HEENT: NormoCephalic, Anicteric, PERRLA, [place] Conjunctivae, No Ptosis
Respiratory: Clear; No Wheezes, Rales or Rhonchi
Cardiac: S1/S2 Sinus tachy
GI: Soft, Non Tender, Non Distended, Normal Bowel Sounds and No Hepatosplenomegaly
Musculoskeletal: No Clubbing, No Cyanosis and No Edema
Skin: Warm and Dry; No Rash or Jaundice
Neuro: AO x 3, tremors outstretched hands significantly improved/appears resolved at this time
Psych: Calm
Anticipated Discharge: Today
Subjective/Interval History
-
Date of Service: June 16, 2023
Denies abdominal pain, denies vomiting. No tremors.
Objective Data
-
Labs:
Laboratory Results
06/16/23
06:09
Sodium 138
Potassium 3.9
Chloride 97 L
Carbon Dioxide 30
BUN 9
Creatinine 0.5 L
Glucose 153 H
Calcium 10.0
Total Bilirubin 0.5
AST 70 H
ALT 123 H
Alkaline Phosphatase 81
Vital Signs:
Vital Signs
Temp Pulse Resp BP Pulse Ox
99 F 96 20 123/82 98
06/15/23 23:27 06/15/23 23:27 06/15/23 23:27 06/15/23 23:27 06/15/23 23:27
I&O
06/15/23 06/16/23 06/17/23
06:59 06:59 06:59
Intake Total 1660 / 1660 240 / 240
Balance 1660 / 1660 240 / 240
[2023-06-16 08:00] VITALS: BP 129/80
[2023-06-16 08:14] LABS: Glucose - Point of Care 134 mg/dl (70-99)
[2023-06-16 08:26] LABS: Glycohemoglobin (HgbA1c) 9.8 % (4.0-5.6)
[2023-06-16] MEDS: NOVOLOG FLEXPEN-LOW RESISTANCE SC (08:38)
--- NOTE | 2023-06-16 09:07 | CM ---
Addendum entered by ZION Brewer 06/16/23 10:48:
Received return call from Sherrill at [facility] who stated that patient has a p/u time at 15:00 to rehab ([facility]). This was conveyed to unit and attending who stated that she will write for dicharge.
Original Note:
All clinical faxed to Sherrill at [facility].
Plan: Case management will continue to follow and assist with discharge planning. Patient will go to rehab for ETOH.
--- NOTE | 2023-06-16 09:19 | PN.CDI ---
CDI
- -
CDI:
Physician Documentation Request
Admit Date: 06/11/23 22:46
Dear Doctor Do,
Clinical Indicators:
Patient admitted with acute alcohol withdrawal.
06/10 H & P, 'Patient reports 12 beers daily x 5 years.'
06/14 PN, 'Acute alcohol withdrawal, alcohol abuse'
Please specify the pattern of abuse, include all that apply:
Abuse with dependence
Abuse without dependence
Other, please specify
Use of terms such as suspected, likely, concern for, or probable (associated with a specific diagnosis that is being evaluated, monitored, or treated as if it exists) are acceptable and can be coded in the inpatient setting, when documented at the
time of discharge.
Thank you,
NASEEM Pimentel RN
CDI Specialist
available via tiger text
Please use your independent medical judgment in providing your response.
[2023-06-16 11:13] VITALS: BP 128/93
[2023-06-16 11:45] LABS: Glucose - Point of Care 197 mg/dl (70-99)
--- NOTE | 2023-06-16 12:11 | W.DCSUMMARY ---
Discharge Summary
Discharge Data
Date of Admission: 06/11/23
Date of Discharge: 06/16/23
-
Pending Results: No
Hospital Course
Discharge diagnosis:
Acute alcohol withdrawal
Alcohol abuse with dependency
Hyponatremia due to beer potomania
Acute transaminitis from alcohol use
Newly diagnosed type 2 diabetes with hemoglobin A1c of 9.8
Hyperlipidemia
Hospital course:
38-year-old Lithuanian speaking only male with no significant past medical history was admitted for acute alcohol withdrawal. Patient reports drinking 12 beers a day for 5 years. He has alcohol abuse with dependency.
Patient was treated with IV Ativan, thiamine, folic acid.
Patient was also noted to have transaminitis from alcohol use. This was trended and resolved.
Patient had hyponatremia due to beer potomania. He was treated with a fluid restriction, his sodium normalized. He will be discharged on a fluid restriction. He needs to have a repeat BMP to check his sodium at the rehab facility on 06/22/2023.
He was also found to have new onset type 2 diabetes with a hemoglobin A1c of 9.8. Suspect this is due to his high alcohol intake. He was started on metformin 500 mg twice a day, and will be discharged on this.
Patient was agreeable to inpatient alcohol rehab. He is medically stable for discharge. He needs to follow-up with his primary care doctor 1 week after he leaves rehab.
Disposition: Inpatient alcohol rehab
Discharge planning: Required 31 minutes
Discharge Plan
-
Patient Disposition: Acute Rehab Facility
Discharge Diagnosis/Procedures: Acute alcohol withdrawal, alcohol abuse with alcohol dependency, hyponatremia secondary to beer Potomania, newly diagnosed type 2 diabetes with a hemoglobin A1c of 9.8, hyperlipidemia, alcoholic transaminitis
Condition: Fair
Diet: Diabetic, Carb Controlled and Restrict fluids to 64 oz
Blood Work: BMP on 06/22/2023
Activity Restrictions/Additional Instructions:
Please permanently discontinue drinking alcohol.
You have newly diagnosed type 2 diabetes. You need to adhere to a low carbohydrate diet.
Your sodium was low. We recommend you adhere to a 64 ounce fluid restriction.
You need repeat blood work/BMP on 06/22/2023.
Referrals:
NONE,* [Family Provider] -
Prescriptions:
New
thiamine HCl (vitamin B1) 100 mg Tablet
100 mg PO BID Qty: 0 0RF
folic acid 1 mg Tablet
1 mg PO DAILY Qty: 0 0RF
metformin 500 mg Tablet
500 mg PO BID@0800,1700 Qty: 60 0RF
Discharge Orders:
Discharge Patient (As Directed); Ordered 06/16/23
Ordered By: Terrell Hinson
Discharge Date and Time
Discharge Date/Time: 06/16/23 16:15
[2023-06-16] MEDS: NOVOLOG FLEXPEN-LOW RESISTANCE 1 UNITS SC (12:12)
[2023-06-16 13:00] LABS: COVID-19 Antigen Negative (Negative)
[2023-06-16 15:18] VITALS: BP 146/84
== END 2023-06-16 16:15 | DRG 897 ==
LOC: 3 WEST ACU 22:46
PROVIDERS: Clinical Nurse Specialist Family Health; ADMITTING PHYSICIAN Hospitalist; ATTENDING PHYSICIAN Family Medicine; EMERGENCY PHYSICIAN Student in an Organized Health Care Education/Training Program
DX: F10.239 Alcohol dependence with withdrawal, unspecified (principal); E87.1 Hypo-osmolality and hyponatremia; E11.65 Type 2 diabetes mellitus with hyperglycemia; E78.00 Pure hypercholesterolemia, unspecified; Z75.1 Person awaiting admission to adequate facility elsewhere; Z11.52 Encounter for screening for COVID-19
CPT/HCPCS: 74177; 80053; 80061; 80306; 80307; 81003; 81015; 82010; 82077; 82962; 82977; 83036; 83690; 83735; 84100; 85025; 85610; 85730; 87811; 96361; 96374; 96375; 96376; 97163; 97166; 97530; 99285; Q9967

== ENCOUNTER 2023-11-08 13:01 | Emergency (ER) | payer SELFPAY ==
[2023-11-08] VITALS (9 sets, daily range): BP systolic 113–141; BP diastolic 67–87
[2023-11-08] MEDS: MORPHINE SULFATE 4 MG IV ×2 (14:13→17:05)
[2023-11-08] MEDS: NSS 1000 IV (14:21)
[2023-11-08 14:39] LABS: INR 1.04; PT 13.4 Sec (11.4-14.6)
[2023-11-08 14:40] LABS: APTT 27.3 Sec (23.4-35.0)
[2023-11-08 14:52] LABS: ALT (SGPT) 102 U/L (0-50); AST (SGOT) 130 U/L (17-59); Albumin 4.9 g/dl (3.5-5.0); Alcohol 192 mg/dl; Alkaline Phosphatase 96 U/L (38-126); Blood Urea Nitrogen 9 mg/dl (9-20); Calcium 9.5 mg/dl (8.4-10.2); Carbon Dioxide 21 mmol/L (22-30); Chloride 93 mmol/L (98-107); Glucose 137 mg/dl (70-99); Lipase 53 U/L (23-300); Potassium 4.8 mmol/L (3.5-5.1); Sodium 131 mmol/L (135-145); Total Bilirubin 0.9 mg/dl (0.2-1.3); eGFR > 60.00
[2023-11-08] MEDS: ADACEL 0.5 ML IM (15:23)
[2023-11-08 16:49] LABS: % Basophils 0.2 % (0-2); % Eosinophils 0.1 % (0-6); % Immature Granulocytes 0.6 % (0-0.5); % Lymphocytes 23.7 % (20.5-51.1); % Neutrophils 65.4 % (42.2-75.2); Absolute Immature Granulocytes 0.1 10^3/uL (0-0.05); Absolute Lymphocytes 2.4 10^3/uL (1.2-3.4); Absolute Neutrophils 6.6 10^3/uL (1.4-6.5); Hematocrit 45.7 % (39.0-52.0); Hemoglobin 16.5 g/dL (13.0-18.0); Mean Corp Hgb Conc. 36.1 g/dL (33.0-37.0); Mean Corpuscular Hgb 31.2 pg (27.0-31.0); Mean Corpuscular Volume 86.4 fL (80.0-94.0); Nucleated Red Blood Cells % 0 % (-); Platelet Count 309 10^3/uL (130-400); Red Blood Cell Count 5.29 10^6/uL (4.70-6.10); Red Cell Dist. Width 12.4 % (11.5-14.5); White Blood Cell Count 10.1 10^3/uL (4.8-10.8)
[2023-11-08] MEDS: TORADOL 15 MG IV (17:04)
--- NOTE | 2023-11-08 17:47 | ED.GENMED ---
Addendum entered and electronically signed by Michael Askew MD 11/08/23 19:45:
Patient awaiting transport. Nurse is concerned he may be going through withdrawal. Somewhat shaky tachycardic and diaphoretic. Patient complaining of pain at the site of the left leg and pelvis. Denies abdominal pain or other complaints. Mildly
tachycardic. Blood pressure stable. Relatively warm and dry. Mildly diaphoretic on the forehead. Patient does admit to probably 6 beers a day. I do not feel there is anything acute going on on top of the trauma. Testing was all reviewed. The
trauma occurred yesterday. No abdominal bleed. Abdomen is nontender. We will give a dose of Ativan pending transfer.
Original Note:
History of Present Illness
General
Chief Complaint: Fall
Source: patient
Exam Limitations: none
Time Seen by Provider: 11/08/23 13:56
Nursing documentation reviewed up to this point in time: agreed with
History of Present Illness
History of Present Illness:
38-year-old male with past medical history of alcohol use presents to the emergency room for evaluation after a fall. Patient reports that he was working on the second story of his home using a ladder; he says that he fell off of the ladder from
the second story and landed directly on his feet and then fell backwards. He is not sure if he hit his head but did not lose consciousness. He says that he has significant pain in the left leg�he says the hip, knee, foot all are in significant
pain. He denies any severe pain in the right leg. He also complains of low back pain. He denies any headache. Denies any chest or abdominal pain. Denies feeling nauseated. He denies feeling numbness or weakness in his extremities. He denies
being on any blood thinners or taking any other medications. He does admit to drinking a few beers today.
Past History
Past History
ED Past Medical History: None; Negative Asthma, HTN, Hypercholesterolemia or NIDDM
ED Past Surgical History: None
Social History
Tobacco: Non-smoker
Alcohol: Occasional
Personal: Single
Living: alone
Review of Systems
Review of Systems
All Other Systems: ROS reviewed and negative except as documented in HPI and ROS
Constitutional: Denies fever
Respiratory: Denies trouble breathing
Cardiac: Denies chest pain
ABD/GI: Denies abdominal pain, nausea or vomiting
Musculoskeletal: Reports joint pain (Hip, knee, foot pain) and back pain; Denies neck pain
Phy Exam
Physical Exam
Physical Exam:
General: Awake, alert, oriented x3 with a GCS of 15; appears uncomfortable
Head: Normocephalic, atraumatic
Eyes: Conjunctiva normal, pupils equal round and reactive to light bilaterally
Throat: Airway intact, handling secretions
Neck: Trachea midline, no cervical spine tenderness
Back: No abrasions or ecchymosis to the back or flank; he does have midline tenderness in the thoracic spine T10-12 level as well as midline tenderness in the lumbar spine L4-L5 level; no spinal step-offs
Lungs: Clear to auscultation bilaterally, no wheezing, rales, rhonchi
Heart: Tachycardia with regular rhythm, no murmurs, gallops, or rubs; no chest wall tenderness or crepitus
Abd: Soft, non distended, nontender
Neuro: Cranial nerves grossly intact, speech fluid; patient has intact distal motor and sensory function in all extremities�proximal strength testing of the left lower extremity is limited due to significant pain
Skin: Scattered abrasions on the lower extremities
Extremities: Patient has good pulses in all extremities; he has no obvious deformities; patient has no signs of trauma to the left upper extremity; patient has some mild lateral elbow tenderness right upper extremity but no deformity or joint
effusion; he has some mild tenderness on the dorsum of the right hand but is able to make a fist and move the right wrist through good range of motion; no tenderness to the right shoulder //patient has an abrasion on the right knee but no
reproducible tenderness in the right lower extremity and he is able to move the right hip, knee, ankle through good active range of motion without pain; on exam of the left lower extremity patient has marked tenderness of the femur mostly laterally,
has some medial joint line tenderness in the knee but no significant effusion, unable to move the knee through any range of motion due to significant pain in the hip and knee; he has significant tenderness and some swelling of the dorsum and lateral
aspect of the foot as well as tenderness of the calcaneus on the left
Scores
Heart Failure Risk
Heart Failure Risk Score: Not Applicable
Heart Score for Chest Pain Patients
STEMI patient?: Not applicable
Withdrawal Assessment of Alcohol
Withdrawal Assessment Completed?: Not applicable
Course
Orders/Labs/Results
Orders:
Orders
11/08/23 14:03
CT Cervical Spine W/o Iv Contr Urgent
Comment:
Reason For Exam: fall from 2 store[address] Chest/abd/pel W Iv Cont Urgent
Reason For Exam: fall from [address] Head W/o Iv Contrast Urgent
Comment:
Reason For Exam: fall from 2 storeys pain and ttp mid t spine, l sp
CR Elbow - Right Min 3 Views Urgent
Comment:
Reason For Exam: elbow pain s/p fall
CR Femur - Left Min 2 Vw Urgent
Comment:
Reason For Exam: leg pain s/p fall
CR Foot - Left Min 3 Views Urgent
Comment:
Reason For Exam: foot pain s/p fall
CR Hand - Right Min 3 Views Urgent
Comment:
Reason For Exam: right hand pain s/p fall
CR Leg Tibia/fibula Left 2 Vw Urgent
Comment:
Reason For Exam: leg pain s/p fall
11/08/23 14:06
Morphine Sulfate 4 mg IV NOW STA
Tetanus/Diphth/Acelpertussis [Adacel] 0.5 ml IM .ONCE ONE
11/08/23 14:07
0.9% Sodium Chloride 1000 ml [Nss] 1,000 ml IV BOLUS
11/08/23 14:19
Type+Screen Urgent
Alcohol Urgent
Complete Blood Count/With Diff Urgent
Comprehensive Metabolic Panel Urgent
Lipase Urgent
PTT Urgent
Prothrombin Time Urgent
11/08/23 17:00
Ketorolac [Toradol] 15 mg IV NOW STA
11/08/23 17:01
Morphine Sulfate 4 mg IV NOW STA
Abnormal Lab Results
11/08/23
14:19
MCH 31.2 H pg
(27.0-31.0)
Abs Immat Gran (auto) 0.1 H 10^3/uL
(0-0.05)
Absolute Neuts (auto) 6.6 H 10^3/uL
(1.4-6.5)
Absolute Monos (auto) 1.0 H 10^3/uL
(0.1-0.6)
Immature Gran % 0.6 H %
(0-0.5)
Monocytes % 10.0 H %
(1.7-9.3)
Sodium 131 L mmol/L
(135-145)
Chloride 93 L mmol/L
(98-107)
Carbon Dioxide 21 L mmol/L
(22-30)
Creatinine 0.6 L mg/dL
(0.7-1.3)
Glucose 137 H mg/dl
(70-99)
AST 130 H U/L
(17-59)
ALT 102 H U/L
(0-50)
11/08/23 14:19
11/08/23 14:19
Vital Signs
Initial and Last Documented VS:
Initial Vital Signs
Temp Pulse Resp BP Pulse Ox
36.3 C 110 18 141/87 97
11/08/23 13:05 11/08/23 13:05 11/08/23 13:05 11/08/23 13:05 11/08/23 13:05
Last Documented Vital Signs
Temp Pulse Resp BP Pulse Ox
36.3 C 117 25 113/74 98
11/08/23 13:05 11/08/23 16:45 11/08/23 16:45 11/08/23 16:00 11/08/23 16:45
MDM/Problems Addressed
Differential Diagnosis Includes:
Fractures, dislocations, contusions, sprains
MDM/Problems Addressed:
38-year-old male presents to the emergency room for evaluation after fall off of a ladder from the second story of his house; landed on his feet and then fell towards his back. Not on blood thinners. Tachycardic but otherwise normal vitals.
Primary survey intact. Secondary survey as above. ED trauma alert called based on mechanism. Will place an IV send labs including a CBC and a CMP, lipase, coags, alcohol level, type and screen. Will send for a CT of the head, cervical spine,
chest/abdomen/pelvis; will send for x-rays of the right hand and elbow, left femur, tibia/fib, foot. Will treat with pain medication and IV fluids. Reassess the above.
Labs reviewed: CBC unremarkable, CMP shows no clinically significant abnormalities�marginal elevation of the transaminases likely related to alcohol use. His alcohol level was slightly elevated at 192 although clinically does not appear
intoxicated. Trauma imaging shows no acute posttraumatic injuries on review of CT head and cervical spine. On CT of the chest/abdomen/pelvis patient has nondisplaced fractures of the pubic rami. X-rays show no acute fractures although based on
the degree of pain in his foot and knee suspect at the very least sprain if not ligamentous injury/internal derangement. Also significant back pain likely strain versus contusion. Patient still having significant pain will attempt additional pain
control and reassess.
Patient's pain is still significant that she is having trouble even sitting up in bed due to the degree of pain mainly in the left hip and leg. He has had 3 rounds of parenteral pain medication without adequate control to even attempt getting out
of bed; will plan to admit for pain control; unfortunately unable to admit here for traumatic mechanism. Discussed case with trauma physician at [facility] for transfer, patient accepted for transfer by Dr. Gastelum. Will monitor pending
transport.
*Radiology
Radiology exam reviewed: radiology read reviewed
*Pulse Oximetry
Patient hypoxic: no
*Critical Care Note
Total Time (30-74mins, 75-104mins- exclusive of procedures): Not Applicable
Data Reviewed
Review of Other/Old Records Reveals: Labs and Records
Source: patient and records
Patient Management
Discussion with other providers: [employer] (Discussed with trauma physician at [facility])
Escalation/DeEscalation of care consider admission/obs:
Admission indicated�transfer to trauma center
ED Attending Note
-
Portions of this chart may have been created with voice recognition software.� Occasional wrong word or��sound alike� substitutions may have occurred due to the inherent limitations of voice recognition software.
Discharge Plan
Departure
Patient Disposition: Acute Care Hospital
Date of Disposition: 11/08/23
Time of Disposition: 17:23
Discharge Problem:
Pelvic fracture, Back pain, Injury of knee, left, Injury of foot, left
Prescriptions:
No Action
No Current Medications
0
Referrals:
NONE,* [Family Provider] -
Hospital Transfer
Other hospital: [facility]
I certify that the patient requires transfer: Yes
Discussed case with accepting physician: Nirav
Reason for transfer: availability of service
Interventions
Interventions:
*Risk Screen - Suicide Last Done: 11/08/23 13:05
*General Assessment Last Done: 11/08/23 13:05
*Neglect/Abuse Screening Last Done: 11/08/23 13:05
ED- Fall Risk Assessment Last Done: 11/08/23 14:25
*ED COVID-19 Vaccine History Last Done: 11/08/23 14:25
ED-Musculoskeletal Assessment Last Done: 11/08/23 14:25
ED- Neurological Assessment Last Done: 11/08/23 14:25
ED-Skin Assessment Last Done: 11/08/23 14:25
Discharge Date and Time
Print Language: ROMANIAN
--- NOTE | 2023-11-08 19:41 | EDRN ---
About 4 minutes ago, pt was dry heaving and became profusely diaphoretic while talking on cell phone. Pt denied nausea. Informed Dr Askew who is at bedside speaking with pt
[2023-11-08] MEDS: ATIVAN 1 MG IV (19:48)
--- NOTE | 2023-11-08 20:07 | EDRN ---
Report called to Roman at [facility]
--- NOTE | 2023-11-08 21:10 | EDRN ---
Report given to Acute Care transport crew
== END 2023-11-08 21:19 | disposition short-term general hospital (02) ==
LOC: EMR 13:01
PROVIDERS: EMERGENCY PHYSICIAN Emergency Medicine
DX: S32.9XXA Fracture of unspecified parts of lumbosacral spine and pelvis, initial encounter for closed fracture (principal); M54.50 Low back pain, unspecified; S89.92XA Unspecified injury of left lower leg, initial encounter; W19.XXXA Unspecified fall, initial encounter
CPT/HCPCS: 99283; 96374; 96375; 96376; 96372; 96361; 70450; 71260; 72125; 73080; 73130; 73552; 73590; 73630; 74177; 80053; 82077; 83690; 85025; 85610; 85730; 86850; 86900; 86901; 90715; Q9967

== ENCOUNTER 2023-12-15 00:33 | Emergency (ER) | payer SELFPAY ==
[2023-12-15 00:41] VITALS: BP 118/82
[2023-12-15 04:44] LABS: Glucose - Point of Care 139 mg/dl (70-99)
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
== END 2023-12-15 05:32 | disposition home or self-care (01) ==
LOC: EMR 00:33
PROVIDERS: EMERGENCY PHYSICIAN Emergency Medicine
DX: S00.81XA Abrasion of other part of head, initial encounter (principal); S60.512A Abrasion of left hand, initial encounter; Y04.0XXA Assault by unarmed brawl or fight, initial encounter; F10.129 Alcohol abuse with intoxication, unspecified
CPT/HCPCS: 99284; 70450; 72125; 82962

== ENCOUNTER 2024-12-30 10:46 | Emergency (ER) | payer SELFPAY ==
[2024-12-30 11:10] LABS: Hematocrit 42.7 % (39.0-52.0); Hemoglobin 15.2 g/dL (13.0-18.0); Mean Corp Hgb Conc. 35.6 g/dL (33.0-37.0); Mean Corpuscular Volume 87.1 fL (80.0-94.0); Nucleated Red Blood Cells % 0 % (-); Platelet Count 322 10^3/uL (130-400); Red Cell Dist. Width 12.7 % (11.5-14.5)
[2024-12-30 11:32] LABS: ALT (SGPT) 24 U/L (0-50); AST (SGOT) 25 U/L (17-59); Albumin 4.7 g/dl (3.5-5.0); Alkaline Phosphatase 97 U/L (38-126); Blood Urea Nitrogen 8 mg/dl (9-20); Calcium 9.1 mg/dl (8.4-10.2); Carbon Dioxide 20 mmol/L (22-30); Chloride 103 mmol/L (98-107); Glucose 172 mg/dl (70-99); Lipase 80 U/L (23-300); Potassium 4.2 mmol/L (3.5-5.1); Sodium 139 mmol/L (135-145); Total Protein 8.6 g/dl (6.3-8.2); eGFR > 60.00
--- NOTE | 2024-12-30 12:39 | ED.GENMED ---
History of Present Illness
General
Chief Complaint: Abdominal Symptoms
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
Exam Limitations: none
Time Seen by Provider: 12/30/24 12:06
Nursing documentation reviewed up to this point in time: agreed with
History of Present Illness
History of Present Illness:
The patient is a pleasant 39-year-old Ethiopian-speaking man who arrives with complaints of a headache for several days to weeks. Patient reports the pain has been constant. He reports the only time he has ever had a headache like this in the past
is when he suffered head injury years ago. He describes it as severe, at the back of his head, and throbbing. He reports it is associated with nausea but no vomiting. He reports at times his eyes feel blurred but it has not substantially affected
his vision. He reports he is sensitive to light and noise. He denies sore throat, fever and vomiting. He denies a family history of brain aneurysm and migraines. He reports despite taking Tylenol he still has the pain. Patient reports that his
friends gave him alcohol yesterday to help with his headache but it only made it worse. Patient reports that he rarely drinks alcohol so this was unusual to drink. He denies cigarette use. He denies weakness and numbness. Patient reports that he
bit into something hard and it has caused pain along his right lower jawline. However, he reports that his headache started days to weeks before this started.
Past History
Past History
ED Past Medical History: None
ED Past Surgical History: None
Social History
Tobacco: Non-smoker
Alcohol: Occasional
Drug: Other
Personal: Single
Living: alone
Employment: Employed
Family History
Family History: Other (No history of brain aneurysm)
Review of Systems
Review of Systems
Allergies reviewed?: Yes
All Other Systems: ROS reviewed and negative except as documented in HPI and ROS
Constitutional: Reports no symptoms
EENT: Reports other (At times poor vision and light sensitivity)
Respiratory: Reports no symptoms
Cardiac: Reports no symptoms
ABD/GI: Reports nausea
: Reports no symptoms
Musculoskeletal: Reports no symptoms
Skin: Reports no symptoms
Neurological: Reports no symptoms
Endocrine: Reports no symptoms
Hematologic/Lymphatic: Reports no symptoms
Psychiatric: Reports no symptoms
Phy Exam
Physical Exam
Physical Exam:
Physical Exam
General: no apparent distress, not acutely ill
Neck: supple. no meningeal signs. normal psoterior pharynx. No pharyngeal erythema or exudate. Dry mucous membrane. Mild soft tissue tenderness along right lower jawline without any sign of abscess or notable swelling
Heart: s1/s2 regular rate and rhythm, no murmur. equal radial pulses.
Lungs: no acute respiratory distress. clear bilaterally
Abdomen: normal bowel sounds. not tender. no CVAT
Neuro: alert and orientedx3. no focal neurological deficits. Cranial nerves equal and symmetric bilaterally. Extraocular muscles intact, PERRL, steady gait
Skin: no rash
Psychiatric: well kept. interactive and cooperative
Extremities: no edema. no calf tenderness. negative homans. good distal pulses
Course
Orders/Labs/Results
Orders:
Orders
12/30/24 10:51
Electrocardiogram (*1) Urgent
Reason for Study: Abdominal Pain
EKG- Treatment ONCE
12/30/24 11:00
Complete Blood Count/With Diff Urgent
Comprehensive Metabolic Panel Urgent
Lipase Urgent
12/30/24 13:09
Diphenhydramine [Benadryl] 25 mg IV NOW STA
Metoclopramide [Reglan] 10 mg IV NOW STA
12/30/24 13:10
CT Head W/o Iv Contrast Urgent
Comment:
Reason For Exam: headache
0.9% Sodium Chloride 1000 ml [Nss] 1,000 ml IV BOLUS
12/30/24 13:17
Vital Signs- Treatment ONCE
Frequency: Once
Abnormal Lab Results
12/30/24
11:00
Absolute Monos (auto) 0.7 H 10^3/uL
(0.1-0.6)
Carbon Dioxide 20 L mmol/L
(22-30)
BUN 8 L mg/dl
(9-20)
Creatinine 0.4 L mg/dL
(0.7-1.3)
Glucose 172 H mg/dl
(70-99)
Total Protein 8.6 H g/dl
(6.3-8.2)
12/30/24 11:00
12/30/24 11:00
Vital Signs
Initial and Last Documented VS:
Initial Vital Signs
Pulse Resp BP Pulse Ox
101 16 91/54 96
12/30/24 13:24 12/30/24 13:24 12/30/24 13:24 12/30/24 13:24
Last Documented Vital Signs
Pulse Resp BP Pulse Ox
101 16 91/54 96
12/30/24 13:24 12/30/24 13:24 12/30/24 13:24 12/30/24 13:24
MDM/Problems Addressed
Differential Diagnosis Includes:
Tension headache, migraine headache, intracranial mass
MDM/Problems Addressed:
Patient presents with acute headache for several days that has been constant, and at times he describes having a headache for weeks.
*Radiology
Radiology exam reviewed: radiology read reviewed
*Pulse Oximetry
Patient hypoxic: no
*EKG
Interpreted by ED Provider?: Yes
Interpretation: normal
Comparison EKG: no comparison EKG present
Rate: normal
Rhythm: sinus
[place]: normal axis
Interval: normal interval
QRS Pattern: normal QRS
Ischemia: no ischemia
*Critical Care Note
Total Time (30-74mins, 75-104mins- exclusive of procedures): Not Applicable
Update Note
Update Note:
2:40 PM patient is resting comfortably and states his headache is nearly gone. He has a normal neurological exam and appears nontoxic and well.
ED Attending Note
-
Portions of this chart may have been created with voice recognition software.� Occasional wrong word or��sound alike� substitutions may have occurred due to the inherent limitations of voice recognition software.
Discharge Plan
Departure
Patient Disposition: Home (Routine Discharge)
Date of Disposition: 12/30/24
Time of Disposition: 14:53
Patient with high blood pressure during this ER visit?: No
Condition: Good
Covid-19: Not Applicable
Discharge Problem:
Headache
Instructions: Headache in adults - ED (DC)
Prescriptions:
No Action
No Current Medications
0
Referrals:
NONE,* [Family Provider, Internal Medicine]
Activity Restrictions/Additional Instructions:
Par becca dentista, lljerica para hacer becca yaa en [facility] at .
Para becca doctor, por hailey merchant [facility] at [phone]
Interventions
Interventions:
*Risk Screen - Suicide Last Done: 12/30/24 10:48
*Neglect/Abuse Screening Last Done: 12/30/24 10:48
MI-Fvpnva-Spdsnmyrgp Assessment Last Done: 12/30/24 11:43
Discharge Date and Time
Print Language: YEMENI
[2024-12-30] MEDS: NSS 1000 IV (13:19)
[2024-12-30] MEDS: BENADRYL 25 MG IV (13:19)
[2024-12-30] MEDS: REGLAN 10 MG IV (13:19)
[2024-12-30 13:23] VITALS: BMI 28.3
[2024-12-30 13:24] VITALS: BP 91/54
== END 2024-12-30 15:34 | disposition home or self-care (01) ==
LOC: EMR 10:46
PROVIDERS: Emergency Medicine; EMERGENCY PHYSICIAN Emergency Medicine
DX: R51.9 Headache, unspecified (principal); R11.0 Nausea; Z87.828 Personal history of other (healed) physical injury and trauma
CPT/HCPCS: 96374; 96375; 96361; 99284; 70450; 80053; 83690; 85025; 93005